=== PATIENT | male | born 1990 | race Two or more races ===

== ENCOUNTER 2025-04-15 16:32 | Inpatient (IN) | payer OTHER ==
[2025-04-15 17:03] VITALS: BMI 28.7
[2025-04-15] MEDS ORDERED: NALOXONE (NARCAN) HCL 4 MG/0.1 ML SPRAY NS PRN (17:14)
[2025-04-15] MEDS ORDERED: LOPERAMIDE HCL 2 MG CAPSULE PO PRN (17:14)
[2025-04-15] MEDS ORDERED: ACETAMINOPHEN 325 MG TABLET (FP) PO PRN (17:14)
[2025-04-15] MEDS ORDERED: BISMUTH SUBSALICYLATE 524 MG/30 ML PO PRN (17:14)
[2025-04-15] MEDS ORDERED: guaiFENesin 600 MG TABLET.ER (FP) PO PRN (17:14)
[2025-04-15] MEDS ORDERED: NICOTINE POLACRILEX 2 MG LOZENGE BC PRN (17:14)
[2025-04-15] MEDS ORDERED: BENZOCAINE/MENTHOL (CHLORASEPTIC ) LOZENGE MM PRN (17:14)
[2025-04-15] MEDS ORDERED: ONDANSETRON *ODT* 4 MG TABLET SL PRN (17:14)
[2025-04-15] MEDS ORDERED: DICYCLOMINE HCL 10 MG CAPSULE PO PRN (17:14)
[2025-04-15] MEDS ORDERED: NICOTINE POLACRILEX 2 MG GUM BUC PRN (17:14)
[2025-04-15] MEDS ORDERED: MAGNESIUM HYDROX 2400MG/30ML ORAL SUSPENSION 30 ML CUP PO PRN (17:14)
[2025-04-15] MEDS ORDERED: BENZONATATE 200 MG CAPSULE PO PRN (17:14)
[2025-04-15] MEDS ORDERED: IBUPROFEN 400 MG TABLET (FP) PO PRN (17:14)
[2025-04-15] MEDS ORDERED: POLYETHYLENE GLYCOL (HEALTHYLAX) 3350 17 GM PACKET PO PRN (17:14)
[2025-04-15] MEDS ORDERED: MAG HYDROX/AL HYDROX/SIMETH 30 ML UNIT-DOSE CUP PO PRN (17:14)
[2025-04-15] MEDS ORDERED: METHOCARBAMOL 500 MG TABLET ONE (18:09)
[2025-04-15] MEDS: METHOCARBAMOL 500 MG TABLET PO PRN (18:10)
[2025-04-15] MEDS ORDERED: ALBUTEROL SO4 HFA INHALER IH PRN (18:21)
[2025-04-15] MEDS: MELATONIN 5 MG TABLETS PO SCH (22:08)
[2025-04-15] MEDS: THIAMINE 100 MG TABLET PO SCH (22:09)
[2025-04-15] MEDS: METOPROLOL TARTRATE 25 MG TABLET (FP) PO ONE (22:09)
[2025-04-15] MEDS ORDERED: ATENOLOL 25 MG TABLET (FP) PO ONE (22:22)
[2025-04-16] MEDS: VALSARTAN 160 MG TABLET PO SCH (09:30)
[2025-04-16] MEDS: ATENOLOL 25 MG TABLET (FP) PO SCH (09:30)
[2025-04-16] MEDS: amLODIPine BESYLATE 10 MG TABLET (FP) PO SCH (09:30)
[2025-04-16] MEDS: PRENATAL VITAMINS W/ FOLIC ACID TABLET (FP) PO SCH (09:31)
[2025-04-16 11:34] LABS: MCHC 33.6 g/dl (32.3-36.5); MEAN CELL VOLUME 95.6 fl (79.0-92.2); MEAN PLT VOLUME 11.3 fl (9.4-12.4); RDW 14.0 % (12.0-15.6)
[2025-04-16 11:56] LABS: GLUCOSE,RANDOM 115 mg/dL (74-106); TOT PROT 6.4 g/dl (6.4-8.2)
[2025-04-16 11:57] LABS: CO2 25 mmol/L (21-32)
[2025-04-16 11:59] LABS: ALK PHOS 52 U/L (40-150)
[2025-04-16 12:01] LABS: SGOT/AST 21 U/L (5-34); SGPT/ALT 18 U/L (0-55)
[2025-04-16 12:02] LABS: CREATININE 0.98 mg/dL (0.55-1.3)
[2025-04-17] MEDS: NALTREXONE HCL 50 MG TABLET PO SCH (10:04)
[2025-04-17] MEDS: IBUPROFEN 600 MG TABLET (FP) PO PRN (22:06)
[2025-04-17] MEDS: hydrOXYzine PAMOATE 25 MG CAPSULE (FP) PO PRN (22:07)
[2025-04-18 09:18] VITALS: BP 130/100; PULSE 81; RESP 16; TEMP 97.5
== END 2025-04-18 12:10 | disposition other institution (70) | DRG 775 ==
LOC: YASAS 16:32 → Y6N 17:36
PROVIDERS: ADMIT Neuromusculoskeletal Medicine & OMM; ATTEND Counselor Addiction (Substance Use Disorder)
PROC: HZ2ZZZZ Detoxification Services for Substance Abuse Treatment (ICD-10-PCS; principal; 2025-04-15)
DX: F10.230 Alcohol dependence with withdrawal, uncomplicated (principal); I10 Essential (primary) hypertension; J45.909 Unspecified asthma, uncomplicated; F12.20 Cannabis dependence, uncomplicated; G89.29 Other chronic pain; F17.210 Nicotine dependence, cigarettes, uncomplicated; Z59.00 Homelessness unspecified
CPT/HCPCS: 36415; 80053; 80307; 85027; 86780; 87811; 93005; 93010